=== PATIENT | male | born 1980 | race Caucasian/White ===

== ENCOUNTER 2016-07-04 19:48 | Emergency (ER) | payer BC ==
[2016-07-04 20:07] VITALS: BP 127/78
[2016-07-04] MEDS ORDERED: HYDROmorphone 1 MG/ML Syringe IM ONE (20:17)
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
--- NOTE | 2016-07-05 09:38 | CR ---
Right elbow: Four views of the right elbow were obtained. Olecranon process is fractured. Margins of the fracture are well corticated and this is compatible with old ununited fracture. Elbow study is otherwise unremarkable. No joint effusion is seen. Impression: 1. Ununited olecranon process fracture. Diagnostic code #3
== END 2016-07-04 21:50 | disposition home or self-care (01) ==
LOC: JD.ED 19:48
DX: S59.901A Unspecified injury of right elbow, initial encounter (principal); M25.421 Effusion, right elbow; I10 Essential (primary) hypertension; V86.09XA Driver of other special all-terrain or other off-road motor vehicle injured in traffic accident, initial encounter
CPT/HCPCS: 73080; 96372; 99283; J1170; 99284

== ENCOUNTER 2016-11-11 19:15 | Emergency (ER) | payer BC ==
[2016-11-11 19:30] VITALS: BP 151/89
--- NOTE | 2016-11-11 19:50 | EDM.PDOC ---
ED HPI GENERAL MEDICAL PROBLEM - General Chief Complaint: Upper Extremity Injury/Pain Stated Complaint: RIGHT ARM INJURY Time Seen by Provider: 11/11/16 19:28 Source of Information: Reports: Patient History Limitations: Reports: No Limitations - History of Present Illness INITIAL COMMENTS - FREE TEXT/NARRATIVE: This is a 36-year-old male. Back in July 04 he apparently broke off the olecranon of his right elbow. He had surgery to put it back into place and subsequently after that he apparently fell and tore the tricep tendon off of the olecranon. They went back in and attached the tricep muscle back to the olecranon so he had 2 surgeries to that right elbow. Apparently tonight he fell again and he believes he is told the tricep muscle off of the olecranon once again. He called the patent law specialist that's clinical consultant for Dr. Chávez who told him to come to the ER to get x-rays of his right elbow. He has limited extension of the forearm which makes him feel like the triceps have been torn off. He also feels a deficit where that tendon should be attached. Right Elbow Pain Score (Numeric/FACES): 8 - Related Data Allergies Allergy/AdvReac Type Severity Reaction Status Date / Time No Known Allergies Allergy Verified 11/11/16 19:29 Home Meds: Home Meds . [No Known Home Meds] 11/11/16 [History] Past Medical History Cardiovascular History: Reports: Hypertension - Past Surgical History Musculoskeletal Surgical History: Reports: Other (See Below) Other Musculoskeletal Surgeries/Procedures:: knee surgery, R elbow surgery x2 Social & Family History - Tobacco Use Smoking Status *Q: Never Smoker - Caffeine Use Caffeine Use: Reports: Coffee - Recreational Drug Use Recreational Drug Use: No Review of Systems - Review of Systems Review Of Systems: See Below Constitutional: Reports: No Symptoms Eyes: Reports: No Symptoms Ears: Reports: No Symptoms Nose: Reports: No Symptoms Mouth/Throat: Reports: No Symptoms Respiratory: Reports: No Symptoms Cardiovascular: Reports: No Symptoms GI/Abdominal: Reports: No Symptoms Genitourinary: Reports: No Symptoms Musculoskeletal: Reports: Other (As per history of present illness) Skin: Reports: No Symptoms Neurological: Reports: No Symptoms Psychiatric: Reports: No Symptoms ED EXAM, GENERAL - Physical Exam Exam: See Below Exam Limited By: No Limitations General Appearance: Alert, WD/WN, No Apparent Distress Ears: Normal External Exam Nose: Normal Inspection Throat/Mouth: Normal Inspection, Normal Lips, Normal Voice Head: Atraumatic Neck: Supple Respiratory/Chest: No Respiratory Distress Back Exam: Full Range of Motion Extremities: Other (His right elbow is somewhat tender on palpation with some swelling over the lateral epicondyle area, he has flexion of course but the extension is painful, he appears to have a slight deficit at the olecranon point suggesting possibly tore the tricep muscle again and the tricep muscle is riding high and his posterior upper arm.) Neurological: Alert, Oriented Psychiatric: Normal Affect, Normal Mood Skin Exam: Warm, Dry Course - Vital Signs Last Recorded V/S: Last Vital Signs Temp 97.3 F 11/11/16 19:28 Pulse 60 11/11/16 19:28 Resp 16 11/11/16 19:28 BP 151/89 H 11/11/16 19:28 Pulse Ox 99 11/11/16 19:28 - Orders/Labs/Meds Orders: Active Orders 24 hr Category Date Time Status Elbow Min 3V Rt [CR] Stat Exams 11/11/16 19:44 Taken - Radiology Interpretation Free Text/Narrative:: X-ray of the right elbow shows the hardware to be intact and appropriate compared to the x-ray view that I see on his phone, the tip of the olecranon appears to have some nonunion and may be he is pulled off the tricep tendon again. - Re-Assessments/Exams Free Text/Narrative Re-Assessment/Exam: 11/11/16 20:46 I showed the patient the x-rays that we took tonight. It is very likely he pulled the tricep tendon off the olecranon where they had sutured it back on. He has to follow up with orthopedics on Monday at least call them in the meantime he is to ice down and use the compression sleeve and wear a sling so he doesn't put additional stress on the tricep muscle. Departure - Departure Time of Disposition: 20:47 Disposition: Home, Self-Care 01 Condition: Good Clinical Impression: Triceps tendon rupture Qualifiers: Encounter type: initial encounter Laterality: right Qualified Code(s): S46.311A - Strain of muscle, fascia and tendon of triceps, right arm, initial encounter - Discharge Information Referrals: Jerry Chávez MD [Primary Care Provider] - Forms: ED Department Discharge Additional Instructions: Call the patent law specialist that's on for Dr. Chávez on Monday for evaluation of your right elbow and possible repair, in the meantime where the compression sleeve use ice to the area on and off and wear a sling at all times to not stress the tricep muscle, return to the ER if needed - My Orders Last 24 Hours: My Active Orders 11/11/16 19:44 Elbow Min 3V Rt [CR] Stat - Assessment/Plan Last 24 Hours: My Active Orders 11/11/16 19:44 Elbow Min 3V Rt [CR] Stat
--- NOTE | 2016-11-13 19:58 | CR ---
Right elbow: Four views of the right elbow were obtained. Comparison: Previous right elbow study of 07/04/16. Previous fracture shows fixation involving the olecranon process with orthopedic hardware. Multiple bony densities which appear well-corticated and old are identified off the posterior elbow. Joint spaces are maintained. Nothing acute is seen. Impression: 1. Previous surgery. Other incidental findings. 2. No acute bony abnormality is identified on right elbow study. Diagnostic code #2
== END 2016-11-11 20:56 | disposition home or self-care (01) ==
LOC: JD.ED 19:15
DX: S46.311A Strain of muscle, fascia and tendon of triceps, right arm, initial encounter (principal); I10 Essential (primary) hypertension; W19.XXXA Unspecified fall, initial encounter
CPT/HCPCS: 73080-26-RT; 73080-RT; 99283

== ENCOUNTER 2019-08-24 12:23 | Emergency (ER) | payer BC ==
[2019-08-24 12:44] VITALS: BP 151/85; PULSE 66
--- NOTE | 2019-08-24 12:53 | EDM.PDOC ---
ED HPI GENERAL MEDICAL PROBLEM - General Chief Complaint: Lower Extremity Injury/Pain Stated Complaint: L LEG INJURY Time Seen by Provider: 08/24/19 12:49 Source of Information: Reports: Patient History Limitations: Reports: No Limitations - History of Present Illness INITIAL COMMENTS - FREE TEXT/NARRATIVE: Patient is an unfortunate 39-year-old obese male who presents the emergency department today with complaint of left leg pain and nose and sore throat. Patient reports that he was riding a horse 2 days ago and the horse reared up and caused him to fall off of the horse and the horse fell over onto his left leg has caused pain to his left leg ever since. Patient reports that since that time he has had ear pressure and sore throat with some sinus drainage reports he has been running fever at night. Patient did suffer a loss of consciousness and has been complaining of neck pain the family reports that after he got up and got back on his horse he reported "why am I here what am I doing here". The patient reports no recent travel and no exposure to any known contact with coronavirus. he has a ecchymotic area to his left medial proximal thigh that is 6 x 8 cm bluish-greenish in color neurovascular is intact and there is no distal edema Left Thigh Pain Score (Numeric/FACES): 4 - Related Data Allergies Allergy/AdvReac Type Severity Reaction Status Date / Time No Known Allergies Allergy Verified 11/11/16 19:29 Home Meds: Home Meds Venlafaxine [Effexor XR] 75 mg PO DAILY 08/24/19 [History] Past Medical History Cardiovascular History: Reports: Hypertension - Past Surgical History Musculoskeletal Surgical History: Reports: Other (See Below) Other Musculoskeletal Surgeries/Procedures:: knee surgery, R elbow surgery x2 Social & Family History - Caffeine Use Caffeine Use: Reports: Coffee Review of Systems - Review of Systems Review Of Systems: See Below Constitutional: Reports: Chills, Diaphoresis, Fever Ears: Reports: Other (Fullness") Mouth/Throat: Reports: Other (Sore throat). Denies: Hoarse Voice, Painful Swallowing Musculoskeletal: Reports: Leg Pain Neurological: Reports: Other (Positive loss of consciousness) ED EXAM, GENERAL - Physical Exam Exam: See Below Exam Limited By: No Limitations General Appearance: Alert, WD/WN, Mild Distress, Obese Ears: Normal External Exam, Normal Canal, Hearing Grossly Normal, Normal TMs Nose: Normal Inspection, Normal Mucosa, No Blood Throat/Mouth: Normal Inspection, Normal Lips, Normal Teeth, Normal Gums, Normal Oropharynx, Normal Voice, No Airway Compromise Head: Atraumatic, Normocephalic Neck: Other (Mild paraspinous muscle tenderness C3-C5 no vertebral tenderness) Respiratory/Chest: No Respiratory Distress, Lungs Clear, Normal Breath Sounds, No Accessory Muscle Use, Chest Non-Tender Cardiovascular: Normal Peripheral Pulses, Regular Rate, Rhythm, No Edema, No Gallop, No JVD, No Murmur, No Rub GI/Abdominal: Normal Bowel Sounds, Soft, Non-Tender, No Organomegaly, No Distention, No Abnormal Bruit, No Mass Back Exam: Normal Inspection, Full Range of Motion, NT Extremities: Normal Range of Motion, Non-Tender, No Pedal Edema, Normal Capillary Refill, Other (She has 8 x 6 area of ecchymosis to his medial proximal thigh bluish-greenish in color, he has mild tenderness to left pelvic ring upon palpation neurovascular is intact) Neurological: Alert, Oriented, CN II-XII Intact, Normal Cognition, Normal Gait, Normal Reflexes, No Motor/Sensory Deficits Skin Exam: Warm, Dry Course - Vital Signs Text/Narrative:: AP Pelvis interpreted by me NAD CT cervical spine "impression: #1 mild degenerative change as noted above. #2 nothing acute is seen on CT scan study of cervical spine." Head CT "impression: #1 nothing acute is appreciated on noncontrast head CT exam." Last Recorded V/S: Last Vital Signs Temp 97.6 F 08/24/19 12:36 Pulse 66 08/24/19 12:36 Resp 16 08/24/19 12:36 BP 151/85 H 08/24/19 12:36 Pulse Ox 100 08/24/19 12:36 - Orders/Labs/Meds Orders: Active Orders 24 hr Category Date Time Status CORONAVIRUS COVID-19 PCR PHL Stat Lab 08/24/19 13:25 Received STREP SCRN A RAPID W CULT CONF [RM] Stat Lab 08/24/19 13:23 Received Meds: Medications Discontinued Medications Generic Name Dose Route Start Last Admin Trade Name Freq PRN Reason Stop Dose Admin Acetaminophen/Codeine Phosphate 1 tab 08/24/19 13:33 Tylenol With Codeine No.3 300mg/30mg PO 08/24/19 13:34 ONETIME ONE Departure - Departure Time of Disposition: 13:37 Disposition: Home, Self-Care 01 Clinical Impression: Head contusion Qualifiers: Encounter type: initial encounter Contusion of head detail: other part of head Qualified Code(s): S00.83XA - Contusion of other part of head, initial encounter Concussion Qualifiers: Encounter type: initial encounter Loss of consciousness presence/duration: with LOC of unspecified duration Qualified Code(s): S06.0X9A - Concussion with loss of consciousness of unspecified duration, initial encounter Contusion of left leg Qualifiers: Encounter type: initial encounter Qualified Code(s): S80.12XA - Contusion of left lower leg, initial encounter Contusion of pelvis Qualifiers: Encounter type: initial encounter Qualified Code(s): S30.0XXA - Contusion of lower back and pelvis, initial encounter Fall from horse Qualifiers: Encounter type: initial encounter Qualified Code(s): V80.010A - Animal-rider injured by fall from or being thrown from horse in noncollision accident, initial encounter Upper respiratory infection Qualifiers: URI type: unspecified URI Qualified Code(s): J06.9 - Acute upper respiratory infection, unspecified - Discharge Information *PRESCRIPTION DRUG MONITORING PROGRAM REVIEWED*: No *COPY OF PRESCRIPTION DRUG MONITORING REPORT IN PATIENT KADI: No Instructions: Concussion, Adult Referrals: Diana Guzman PA-C [Primary Care Provider] - Forms: ED Department Discharge Additional Instructions: Home, rest, Tylenol for fever or pain, there is a possibility that you have been infected with coronavirus, we recommend that you stay on quarantine for 14 days or until we have results back, return as needed for any worsening condition Sepsis Event Note (ED) - Evaluation Sepsis Screening Result: No Definite Risk - Focused Exam Vital Signs: Vital Signs Temp Pulse Resp BP Pulse Ox 08/24/19 12:36 97.6 F 66 16 151/85 H 100 - My Orders Last 24 Hours: My Active Orders 08/24/19 13:23 STREP SCRN A RAPID W CULT CONF [RM] Stat 08/24/19 13:25 CORONAVIRUS COVID-19 PCR PHL Stat - Assessment/Plan Last 24 Hours: My Active Orders 08/24/19 13:23 STREP SCRN A RAPID W CULT CONF [RM] Stat 08/24/19 13:25 CORONAVIRUS COVID-19 PCR PHL Stat
--- NOTE | 2019-08-24 13:31 | CT ---
CT cervical spine Technique: Multiple axial sections were obtained from above C1 inferiorly to the bottom of T1. Reconstructed sagittal and coronal images were reviewed. Findings: Vertebral body heights are maintained. Mild disc space narrowing is noted at C3-4, C5-6, C6-7 and C7-T1. Minimal degenerative apophyseal change is scattered within the cervical spine. No bony central or bony neural foraminal stenosis is seen. No acute fracture is seen. No abnormal subluxation is seen. Impression: 1. Mild degenerative change as noted above. 2. Nothing acute is seen on CT study of the cervical spine. Diagnostic code #2 This report was dictated in MDT
--- NOTE | 2019-08-24 13:31 | CR ---
Pelvis: AP view of the pelvis was obtained. Comparison: No prior pelvic exam. Joint spaces within both hips and within both sacroiliac joints appear within normal limits. No acute fracture or other bony abnormality is seen. Impression: 1. No abnormality is identified on AP pelvis study. Diagnostic code #1 This report was dictated in MDT
--- NOTE | 2019-08-24 13:31 | CT ---
Head CT Technique: Multiple axial sections through the brain were obtained. Intravenous contrast was not utilized. Comparison: No prior intracranial imaging is available. Findings: Ventricles along with basal cisterns and sulci over the convexities are within normal limits for the patient's age. No abnormal parenchymal densities are seen. No evidence of intracranial hemorrhage. No midline shift or mass-effect is seen. Visualized mastoid sinuses and visualized paranasal sinuses show nothing acute. No acute calvarial finding is appreciated. Impression: 1. Nothing acute is appreciated on noncontrast head CT exam. Diagnostic code #1 This report was dictated in MDT
[2019-08-24] MEDS ORDERED: Acetaminophen/Codeine 300-30 MG Tab PO ONE (13:33)
== END 2019-08-24 14:00 | disposition home or self-care (01) ==
LOC: JD.ED 12:23
DX: S06.0X9A Concussion with loss of consciousness of unspecified duration, initial encounter (principal); S80.12XA Contusion of left lower leg, initial encounter; S30.0XXA Contusion of lower back and pelvis, initial encounter; S00.83XA Contusion of other part of head, initial encounter; J06.9 Acute upper respiratory infection, unspecified; I10 Essential (primary) hypertension; Z79.899 Other long term (current) drug therapy; V80.010A Animal-rider injured by fall from or being thrown from horse in noncollision accident, initial encounter
CPT/HCPCS: 70450; 72125; 72170; 87081; 87430; 87635; 99284; A9270; U0002